=== PATIENT | male | born 1995 | race Caucasian/White ===

== ENCOUNTER 2019-07-09 15:21 | Emergency (ER) | payer BC, MEDICAID ==
--- NOTE | 2019-07-09 17:08 | ED ---
Psychiatric Complaint - HPI Summary HPI Summary: Patient is a 23 y/o M w/ Hx of ASD, PTSD, ADHD, bipolar disorder who presents to [facility] accompanied by father for evaluation of samia. It is reported that the patient has been manic for the past two weeks. SI, HI, and hallucinations are denied. It is reported that the patient not been taking his medications as prescribed. Patient is followed by [facility]. No physical complaints with exception of a left ear ache that has been present for the past few weeks. Home medications and allergies are reviewed. Home Medications Medication Instructions Recorded Confirmed Type ARIPiprazole TAB* [Abilify 15 MG 15 mg PO DAILY 07/09/19 07/09/19 History TAB*] Benztropine TAB* [Cogentin TAB*] 1 mg PO QAM 07/09/19 07/09/[address] TAB(*) [Depakote 250 mg PO 1530 07/09/19 07/09/19 History (*)] Divalproex DR TAB(*) [Depakote 500 mg PO BID 07/09/19 07/09/19 History (*)] LoraTADine TAB(NF) [Claritin 10 MG 10 mg PO QAM 07/09/19 07/09/19 History TAB(NF)] Methylphenidate TAB* [Ritalin TAB*] 5 mg PO QPM 07/09/19 07/09/19 History Methylphenidate TAB* [Ritalin TAB*] 10 mg PO BID 07/09/19 07/09/19 History Multivitamins/Minerals TAB* 1 tab PO DAILY 07/09/19 07/09/19 History [Theragran/minerals TAB*] Nadolol TAB* [Corgard TAB*] 40 mg PO BID 07/09/19 07/09/19 History Prazosin 1 mg CAP [Minipress 1 mg 1 mg PO BEDTIME 07/09/19 07/09/19 History CAP] - History Of Current Complaint Chief Complaint: EDPsychosocial Time Seen by Provider: 07/09/19 16:08 Hx Obtained From: Patient Onset/Duration: Lasting Weeks, Still Present Timing: Weeks Character: Manic Associated Signs And Symptoms: Negative: Hallucinating Has Suicidal: Denies: Thoughts Has Homicidal: Denies: Thoughts - Allergies/Home Medications Allergies/Adverse Reactions: Allergies Allergy/AdvReac Type Severity Reaction Status Date / Time No Known Allergies Allergy Verified 07/09/19 15:32 Home Medications: Home Medications ARIPiprazole TAB* [Abilify 15 MG TAB*] 15 mg PO DAILY 07/09/19 [History Confirmed 07/09/19] Benztropine TAB* [Cogentin TAB*] 1 mg PO QAM 07/09/19 [History Confirmed ] Divalproex DR TAB(*) [Erika CORDOVA(*)] 250 mg PO 1530 07/09/19 [History Confirmed 07/09/19] Divalproex DR TAB(*) [Deptorrie CORDOVA(*)] 500 mg PO BID 07/09/19 [History Confirmed 07/09/19] LoraTADine TAB(NF) [Claritin 10 MG TAB(NF)] 10 mg PO QAM 07/09/19 [History Confirmed 07/09/19] Methylphenidate TAB* [Ritalin TAB*] 5 mg PO QPM 07/09/19 [History Confirmed ] Methylphenidate TAB* [Ritalin TAB*] 10 mg PO BID 07/09/19 [History Confirmed ] Multivitamins/Minerals TAB* [Theragran/minerals TAB*] 1 tab PO DAILY 07/09/19 [ History Confirmed 07/09/19] Nadolol TAB* [Corgard TAB*] 40 mg PO BID 07/09/19 [History Confirmed 07/09/19] Prazosin 1 mg CAP [Minipress 1 mg CAP] 1 mg PO BEDTIME 07/09/19 [History Confirmed 07/09/19] PMH/Surg Hx/FS Hx/Imm Hx Sensory History: Denies: Hx Legally Blind Opthamlomology History: Denies: Hx Legally Blind Neurological History: Reports: Hx Developmental Delay - ASD Psychiatric History: Reports: Hx Attention Deficit Hyperactivity Disorder, Hx Post Traumatic Stress Disorder, Hx Bipolar Disorder Infectious Disease History: No Infectious Disease History: Denies: Traveled Outside the [place] in Last 30 Days - Family History Known Family History: Positive: Other - no FMHx of bipolar disorder - Social History Alcohol Use: None Substance Use Type: Reports: Marijuana Review of Systems Positive: Ear Ache Psychological: Other - positive - manic; SI, HI, and hallucinations are denied All Other Systems Reviewed And Are Negative: Yes Physical Exam - Summary Physical Exam Summary: General: Well appearing, no distress Cardiovascular: Skin is well perfused Pulmonary: No respiratory distress, no tachypnea Abdomen: Non-distended Skin: Warm, pink, dry MSK: no edema Psych: Normal affect, denies SI HI, denies AH/VH Neuro: A&Ox3 Triage Information Reviewed: Yes Vital Signs On Initial Exam: Initial Vitals Temp Pulse Resp BP Pulse Ox 97.8 F 70 14 147/89 99 07/09/19 15:23 07/09/19 15:23 07/09/19 15:23 07/09/19 15:23 07/09/19 15:23 Vital Signs Reviewed: Yes Procedures - Sedation Patient Received Moderate/Deep Sedation with Procedure: No Diagnostics - Vital Signs Vital Signs Temp Pulse Resp BP Pulse Ox 07/09/19 15:23 97.8 F 70 14 147/89 99 - Laboratory Lab Statement: Any lab studies that have been ordered have been reviewed, and results considered in the medical decision making process. Course/Dx - Course Course Of Treatment: 23 y/o male presenting for psych consult. - VSS NAD. Patient reporting chronic ear pain, but does not want to come back into the room to get evaluated secondary to fear germs. We do not have a portable otoscope available at this time, do not suspect acute infection given chronicity of symptoms. Mother states she'll bring him to walk in clinic to evaluated for his ear pain. Patient cleared by mental health team for outpatient follow-up. - Differential Dx/Clinical Impression Provider Diagnosis: Adjustment disorder with depressed mood, Autism spectrum disorder - Physician Notifications Discussed Care Of Patient With: Sabrina Weber Time Discussed With Above Provider: 18:30 Instructed by Provider To: Other - Patient's case was reviewed by Dr. Weber, patient to be discharged to home Discharge ED - Sign-Out/Discharge Documenting (check all that apply): Patient Departure - discharge - Discharge Plan Condition: Stable Disposition: HOME Patient Education Materials: Depression (ED), Earache (ED) Referrals: Yvette Harris PA [Primary Care Provider] - Additional Instructions: Per completion of a mental health evaluation, you are cleared for release and do not require inpatient psychiatric hospitalization at this time. Please go to nearest emergency room or call 911 if safety concerns arise or condition worsens. Important Phone Numbers: [facility] ph:[phone] Su[facility] Prevention [facility] Crisis Services ph:[phone] National Suicide Prevention Lifeline ph:[phone]- JYKQ (0731) [facility] ph:[phone] Alcoholics Anonymous ph:[phone] [facility] ph:[phone] [employer] ph:[phone] RECOMMENDATION: Follow up with pet care technician (Joaquina) from [facility] and Krysta Mcdermott from [facility]. Follow their care plan. Go to any emergency department if symptoms worsen. - Billing Disposition and Condition Condition: STABLE Disposition: Home - Attestation Statements Document Initiated by Al: Yes Documenting Scribe: MELISSA RITTER Provider For Whom Al is Documenting (Include Credential): CT PAZ MD Scribe Attestation: MELISSA Grewal, scribed for CT PAZ MD on 07/09/19 at 2150. Scribe Documentation Reviewed: Yes Provider Attestation: The documentation as recorded by the MELISSA coley accurately reflects the service I personally performed and the decisions made by BRANDI wahl BELLEROSE, MD Status of Scribe Document: Viewed
[2019-07-09 19:06] VITALS: BP 0/0
== END 2019-07-09 19:05 | disposition home or self-care (01) ==
LOC: ED 15:21
DX: F43.21 Adjustment disorder with depressed mood (principal); F84.0 Autistic disorder; F90.9 Attention-deficit hyperactivity disorder, unspecified type; F43.10 Post-traumatic stress disorder, unspecified; F31.9 Bipolar disorder, unspecified; Z79.899 Other long term (current) drug therapy
CPT/HCPCS: 99283